=== PATIENT | female | born 1970 | race Caucasian/White ===

== ENCOUNTER 2019-08-06 20:28 | Emergency (ER) | payer OTHER ==
[~2019-08-06] VITALS: Ht 152.4 cm; Wt 49.9 kg
--- NOTE | 2019-08-06 20:32 | NUR ---
Patient to ER bed BLANCHARD 1 to gown for evaluation. Side rails up. Report given to LATESHA TARIQ.
[2019-08-06 20:33] VITALS: BP_SYST 112
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
--- NOTE | 2019-08-06 20:45 | NUR ---
ER at bedside examining patient.
--- NOTE | 2019-08-06 21:28 | NUR ---
Patient given written and verbal discharge instructions and verbalizes understanding. ER MD discussed with patient the results and treatment provided. Patient in stable condition. ID arm band removed. Rx of naprosyn given. Patient educated on pain management and to follow up with PMD. Pain Scale 0/10. Opportunity for questions provided and answered. Medication side effect fact sheet provided.
[2019-08-06] MEDS ORDERED: IBUPROFEN 600 MG TABLET PO ONE (21:30)
[2019-08-06 22:22] VITALS: BP_SYST 112
== END 2019-08-06 21:28 | disposition home or self-care (01) ==
LOC: SED 20:28
DX: S00.83XA Contusion of other part of head, initial encounter (principal); Y04.0XXA Assault by unarmed brawl or fight, initial encounter; Y93.89 Activity, other specified; Y92.89 Other specified places as the place of occurrence of the external cause; Y99.8 Other external cause status
CPT/HCPCS: 70160-TC; 99283